=== PATIENT | female | born 2000 | race Caucasian/White ===

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

== ENCOUNTER 2019-07-07 21:14 | Emergency (ER) | payer BC, MEDICAID ==
--- NOTE | 2019-07-07 21:58 | EDM.PDOC ---
ED HPI GENERAL MEDICAL PROBLEM - General Chief Complaint: Abdominal Pain Stated Complaint: 4 WEEKS PREGANT HAS PAIN Time Seen by Provider: 07/07/19 21:55 Source of Information: Reports: Patient History Limitations: Reports: No Limitations - History of Present Illness INITIAL COMMENTS - FREE TEXT/NARRATIVE: 18-year-old 2 para 1 AB 0 who reports at about 8 PM tonight while she was watching a movie with her significant other should be in the have pain in her left pelvic area with pain in her lower back was a crampy type pain. It initially was about a 6/10 and is now a 4/10. She had no bleeding associated with this. She had no symptoms prior to this. She reports that she was seen in clinic on Wednesday of this week and had a test that was positive. Her last menstrual period was on 06/03/2019. She has had some nausea that has been ongoing for several weeks but no vomiting. She has had no fevers or chills. No dysuria or hematuria. No vaginal discharge. No history of trauma. No other associated signs or symptoms. There are no other modifying factors. 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: Other (see below) (Nothing) - Related Data Allergies Allergy/AdvReac Type Severity Reaction Status Date / Time No Known Allergies Allergy Verified 11/24/17 19:33 Home Meds: Home Meds lamoTRIgine [Lamictal] 25 mg PO DAILY 11/16/17 [History] Nitrofurantoin Monohyd/M-Cryst [Macrobid 100 mg Capsule] 100 mg PO BID 7 Days # 14 capsule 07/07/19 [Rx] Past Medical History Genitourinary History: Reports: Other (See Below) Other Genitourinary History: 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, 07/07.) Musculoskeletal History: Reports: Fracture Other Musculoskeletal History: Right wrist fx Psychiatric History: Reports: Bipolar, Depression Dermatologic History: Reports: Eczema Other Dermatologic History: ECZEMA IN CHILDHOOD - Past Surgical History HEENT Surgical History: Reports: Oral Surgery ([place] teeth extraction) GI Surgical History: Reports: Appendectomy Social & Family History - Family History OBGYN: Reports: Other (See Below) Other OBGYN Family History: C SECTIONS - Tobacco Use Smoking Status *Q: Current Every Day Smoker - Caffeine Use Caffeine Use: Reports: Coffee - Living Situation & Occupation Living situation: Reports: with Family Occupation: Student ED ROS GENERAL - Review of Systems Review Of Systems: See Below Constitutional: Reports: No Symptoms HEENT: Reports: No Symptoms Respiratory: Reports: No Symptoms Cardiovascular: Reports: No Symptoms GI/Abdominal: Reports: Abdominal Pain (Left pelvic pain) : Denies: Discharge, Dysuria, Flank Pain Musculoskeletal: Reports: Back Pain Skin: Reports: No Symptoms Neurological: Reports: No Symptoms Hematologic/Lymphatic: Reports: No Symptoms Immunologic: Reports: No Symptoms ED EXAM, GI/ABD - Physical Exam Exam: See Below Exam Limited By: No Limitations General Appearance: Alert, WD/WN, No Apparent Distress Eyes: Bilateral: Normal Appearance, EOMI Ears: Normal External Exam, Hearing Grossly Normal Nose: Normal Inspection, Normal Mucosa, No Blood Throat/Mouth: Normal Inspection, Normal Oropharynx, Normal Voice, No Airway Compromise Head: Atraumatic, Normocephalic Neck: Normal Inspection, Supple, Non-Tender, Full Range of Motion Respiratory/Chest: No Respiratory Distress, Lungs Clear, Normal Breath Sounds, No Accessory Muscle Use, Chest Non-Tender Cardiovascular: Normal Peripheral Pulses, Regular Rate, Rhythm, No Edema GI/Abdominal Exam: Normal Bowel Sounds, Soft, No Mass, Tender (Mildly tender in the left lower quadrant and pelvic area. There is no rebound or guarding.) Back Exam: Normal Inspection. No: CVA Tenderness (R), CVA Tenderness (L) Extremities: Normal Inspection, Normal Range of Motion, Non-Tender, No Pedal Edema, Normal Capillary Refill Neurological: Alert, Oriented, CN II-XII Intact, Normal Cognition, Normal Reflexes, No Motor/Sensory Deficits Psychiatric: Anxious Skin Exam: Warm, Dry, Intact, Normal Color, No Rash Course - Orders/Labs/Meds Orders: Active Orders 24 hr Category Date Time Status CULTURE URINE [RM] Stat Lab 07/07/19 22:20 Received Labs: Laboratory Tests 07/07/19 07/07/19 Range/Units 22:35 22:45 HCG, Quant 123 (<5) mIU/mL Urine Color Yellow (YELLOW) Urine Appearance Slightly cloudy (CLEAR) Urine pH 6.5 (5.0-6.5) Ur Specific [place] 1.000 L (1.010-1.025) Urine Protein Negative (NEGATIVE) mg/dL Urine Glucose (UA) Normal (NORMAL) mg/dL Urine Ketones Negative (NEGATIVE) mg/dL Urine Occult Blood Negative (NEGATIVE) Urine Nitrite Negative (NEGATIVE) Urine Bilirubin Negative (NEGATIVE) Urine Urobilinogen Normal (NEGATIVE) mg/dL Ur Leukocyte Esterase Large H (NEGATIVE) Urine RBC 5-10 H (0-5) Urine WBC 10-20 H (0-5) Ur Squamous Epith Cells Moderate H (NS,R,O) Urine Bacteria Few H (NS) Meds: Medications Discontinued Medications Generic Name Dose Route Start Last Admin Trade Name Freq PRN Reason Stop Dose Admin Nitrofurantoin Macrocrystals 100 mg 07/07/19 23:39 07/07/19 23:52 Macrobid PO 07/07/19 23:40 100 mg ONETIME ONE Administration - Re-Assessments/Exams Free Text/Narrative Re-Assessment/Exam: 07/07/19 23:35: The patient's urinalysis shows some evidence of an infection. I did send the urine for culture. The quantitative hCG was 123. The patient is awake and alert. She has minimal tenderness in her abdomen. She has remained vitally stable. I did call and discuss the patient's case with Dr. Ulrich, AUTOMOBILE BODY WORKER physician at [facility], and she felt that the patient did not need to have an ultrasound performed tonight because she is hemodynamically stable and showing no signs of a ruptured ectopic. She is still at risk for an ectopic the early and the quad being low, the most reasonable course would be to repeat the patient's quantitative hCG within 2-3 days and ultrasound may be done next week if she continues to pain. I discussed this with the patient and she is in agreement with this plan for discharge and follow -up quantitative hCG. I did give the patient ectopic precautions and reasons for to return to the emergency department Departure - Departure Time of Disposition: 23:45 Disposition: Home, Self-Care 01 Condition: Good Clinical Impression: Pelvic pain affecting in first trimester, antepartum UTI in Qualifiers: Trimester: first trimester Qualified Code(s): O23.41 - Unspecified infection of urinary tract in , first trimester - Discharge Information Prescriptions: Nitrofurantoin Monohyd/M-Cryst [Macrobid 100 mg Capsule] 100 mg PO BID 7 Days # 14 capsule Instructions: Nitrofurantoin tablets or capsules, Pelvic Pain, Female, Easy-to- Read Referrals: Blayne Mayer MD [Primary Care Provider] - Forms: ED Department Discharge Additional Instructions: Your urine showed some evidence of an infection. Your quantitative test was 123. As we discussed, this could be pelvic pain associated with your and it could also be associated with a urinary tract infection. It could also be due to an ectopic . You need to follow-up with your OB doctor on Wednesday to have a repeat quantitative test performed. You should rest. You should drink plenty of fluids. Back to the emergency department for increasing pain, vaginal bleeding or any other concerning sign or symptom. Sepsis Event Note - Focused Exam Date Exam was Performed: 07/08/19 Time Exam was Performed: 03:15 - My Orders Last 24 Hours: My Active Orders 07/07/19 22:20 CULTURE URINE [RM] Stat - Assessment/Plan Last 24 Hours: My Active Orders 07/07/19 22:20 CULTURE URINE [RM] Stat
[2019-07-07] MEDS ORDERED: Nitrofurantoin Monohydrate/Macrocrystalline 100 MG Cap PO ONE (23:39)
[2019-07-08 05:17] VITALS: BP 134/71; PULSE 72
== END 2019-07-08 00:01 | disposition home or self-care (01) ==
LOC: FB.ED 21:14
DX: O23.41 Unspecified infection of urinary tract in pregnancy, first trimester (principal); O99.89 Other specified diseases and conditions complicating pregnancy, childbirth and the puerperium; R10.2 Pelvic and perineal pain; O99.331 Smoking (tobacco) complicating pregnancy, first trimester; F17.200 Nicotine dependence, unspecified, uncomplicated; Z79.899 Other long term (current) drug therapy; Z3A.01 Less than 8 weeks gestation of pregnancy
CPT/HCPCS: 36415; 81001; 84702; 87086; 99284; A9270

== ENCOUNTER 2020-12-09 14:54 | Emergency (ER) | payer OTHER ==
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
--- NOTE | 2020-12-09 17:33 | CT ---
INDICATION: Facial injury. CT MAXILLOFACIAL BONES: Spiral 2.5 mm axial sections were obtained through the maxillofacial bones and revealed the paranasal sinuses to be patent - well aerated. The total exam DLP was 656.91 milligray/cm. No evidence of maxillofacial bone fractures was identified. The orbits appear to be intact. Bone density appeared to be normal. IMPRESSION: Normal maxillofacial bones - normal-appearing paranasal sinuses and mastoid air cells as well. Report was called to Dr. Gomez at 1713 hours 12/09/20. [facility]
[2020-12-09 17:44] VITALS: BP 133/83; PULSE 69
== END 2020-12-09 17:35 | disposition home or self-care (01) ==
LOC: FB.ED 14:54
DX: S00.83XA Contusion of other part of head, initial encounter (principal); R04.0 Epistaxis; W20.8XXA Other cause of strike by thrown, projected or falling object, initial encounter
CPT/HCPCS: 70450; 70486; 99000; 99283; 99284-25

== ENCOUNTER 2021-05-25 19:06 | Emergency (ER) | payer SELFPAY ==
[2021-05-25 19:18] VITALS: BP 125/86; PULSE 80
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
== END 2021-05-25 19:45 | disposition home or self-care (01) ==
LOC: FB.ED 19:06
DX: K13.0 Diseases of lips (principal); Z72.0 Tobacco use
CPT/HCPCS: 99283

== ENCOUNTER 2021-08-05 21:15 | Emergency (ER) | payer OTHER ==
[2021-08-05 21:39] VITALS: BP 127/84; PULSE 79
== END 2021-08-05 22:50 | disposition home or self-care (01) ==
LOC: FB.ED 21:15
DX: S41.112A Laceration without foreign body of left upper arm, initial encounter (principal); Z72.0 Tobacco use; W26.8XXA Contact with other sharp object(s), not elsewhere classified, initial encounter
CPT/HCPCS: 12002; 99000; 99282-25; 99283

== ENCOUNTER 2021-11-13 20:57 | Emergency (ER) | payer OTHER ==
[2021-11-13 21:23] VITALS: BP 139/80; PULSE 88
== END 2021-11-13 23:32 | disposition home or self-care (01) ==
LOC: FB.ED 20:57
DX: S52.121A Displaced fracture of head of right radius, initial encounter for closed fracture (principal); W20.8XXA Other cause of strike by thrown, projected or falling object, initial encounter; Y93.68 Activity, volleyball (beach) (court)
CPT/HCPCS: 73110-RT; 99283-25

== ENCOUNTER 2023-05-26 07:02 | Emergency (ER) | payer BC, MEDICAID ==
[2023-05-26] MEDS: Sodium Chloride 0.9% 1,000 ML IV SCH (07:30)
[2023-05-26 07:45] LABS: BASOPHILS PERCENT AUTO 0.4 % (0.2-1.5); EOSINOPHILS ABSOLUTE AUTO 0.1 x10-3/uL (0.0-0.8); EOSINOPHILS PERCENT AUTO 1.2 % (0.6-8.1); HEMATOCRIT 42.9 % (34.2-48.2); HEMOGLOBIN 14.4 g/dL (11.4-15.5); LYMPHOCYTES ABSOLUTE AUTO 2.2 x10-3/uL (1.0-4.4); LYMPHOCYTES PERCENT AUTO 21.7 % (18.4-52.1); MEAN CORPUSCULAR HGB CONC 33.6 g/dL (31.9-34.8); MEAN CORPUSCULAR VOLUME 92.4 fL (76.7-100.5); MEAN PLATELET VOLUME 7.4 fL (7.1-12.4); MONOCYTES ABSOLUTE AUTO 0.6 x10-3/uL (0.3-1.0); MONOCYTES PERCENT AUTO 5.9 % (4.4-15.7); NEUTROPHILS ABSOLUTE AUTO 7.1 x10-3/uL (1.5-6.3); NEUTROPHILS PERCENT AUTO 70.8 % (30.8-76.2); PLATELET COUNT,PLT 375 x10(3)uL (151-488); RED BLOOD CELL COUNT 4.64 x10(6)uL (3.60-5.20); RED CELL DISTRIBUTION WIDTH 12.5 % (12.3-16.5)
[2023-05-26 07:46] LABS: BLOOD UREA NITROGEN,BUN 16 mg/dL (7-18); CALCIUM 9.5 mg/dL (8.6-10.2); CARBON DIOXIDE,CO2 30 mmol/L (21-32); CHLORIDE,CL 103 mmol/L (100-110); CREATININE 0.8 mg/dL (0.55-1.02); ESTIMATED GFR 105 mL/min (>60); GLUCOSE RANDOM 103 mg/dL (80-116); SODIUM,NA 138 mmol/L (135-145)
[2023-05-26 07:49] LABS: BILIRUBIN,URINE NEGATIVE (NEGATIVE); GLUCOSE,URINE NORMAL (NORMAL); KETONES,URINE NEGATIVE (NEGATIVE); LEUKOCYTE ESTERASE,URINE NEGATIVE (NEGATIVE); NITRITE,URINE NEGATIVE (NEGATIVE); OCCULT BLOOD,URINE NEGATIVE (NEGATIVE); PROTEIN,URINE NEGATIVE (NEGATIVE); UROBILINOGEN,URINE NORMAL (NEGATIVE)
[2023-05-26 07:52] LABS: A/G RATIO 1.3; ALANINE AMINOTRANSFERASE,ALT 22 U/L (12-36); ALBUMIN 4.2 g/dL (3.5-5.2); ALKALINE PHOSPHATASE 85 IU/L (56-112); ASPARTATE AMNIOTRANSFERASE,AST 11 IU/L (5-25); BILIRUBIN TOTAL 0.4 mg/dL (0.1-1.3); MAGNESIUM 1.9 mg/dL (1.8-2.5); PROTEIN TOTAL,TP 7.5 g/dL (6.0-8.0)
[2023-05-26 07:56] LABS: COLOR,URINE YELLOW (YELLOW)
[2023-05-26 07:57] LABS: APPEARANCE,URINE CLEAR (CLEAR); BACTERIA,URINE FEW (NS); SQUAMOUS EPITHELIAL CELLS,UR FEW (NS,R,O); WBC,URINE 0-5 (0-5)
[2023-05-26 07:57] LABS: INR 0.98 (1.00-1.24); PROTHROMBIN TIME 10.1 sec (9.0-11.1)
[2023-05-26 08:21] LABS: AMPHETAMINES SCREEN, URINE POSITIVE (NEGATIVE); BARBITURATE SCREEN,URINE NEGATIVE (NEGATIVE); BENZODIAZEPINES SCREEN,URINE NEGATIVE (NEGATIVE); METHADONE SCREEN, URINE NEGATIVE (NEGATIVE); METHAMPHETAMINE SCREEN, URINE NEGATIVE (NEGATIVE); OXYCODONE SCREEN,URINE NEGATIVE (NEGATIVE); THC SCREEN,URINE NEGATIVE (NEGATIVE)
[2023-05-26 08:22] LABS: BUPRENORPHINE SCREEN,URINE NEGATIVE (NEGATIVE)
[2023-05-26 20:05] VITALS: BP 128/84; PULSE 72
== END 2023-05-26 08:20 ==
LOC: FB.ED 07:02
DX: I63.9 Cerebral infarction, unspecified (principal); F17.290 Nicotine dependence, other tobacco product, uncomplicated; Z79.899 Other long term (current) drug therapy; Z90.410 Acquired total absence of pancreas
CPT/HCPCS: 36415; 70450; 80053; 80307; 81001; 81025; 82947; 83735; 84484; 85025; 85610; 85730; 93005; 96360; 99285-25; J7030

== ENCOUNTER 2023-06-20 09:00 | Emergency (ER) | payer BC, MEDICAID ==
[2023-06-20 09:46] VITALS: BP 118/66; PULSE 64
== END 2023-06-20 10:15 | disposition home or self-care (01) ==
LOC: FB.ED 09:00
DX: J02.9 Acute pharyngitis, unspecified (principal); R07.81 Pleurodynia; Z79.899 Other long term (current) drug therapy
CPT/HCPCS: 71045; 87651-QW; 99284

== ENCOUNTER 2023-06-28 13:23 | Emergency (ER) | payer BC, MEDICAID ==
[2023-06-28] MEDS ORDERED: Lidocaine 2% Viscous Solution 15 ML UD PO ONE (13:56)
[2023-06-28] MEDS ORDERED: traMADol 50 MG Tab PO ONE (14:14)
[2023-06-28] MEDS ORDERED: Acetaminophen 500 MG Tab PO ONE (14:14)
[2023-06-28 15:33] VITALS: BP 125/78; PULSE 74
== END 2023-06-28 15:15 | disposition home or self-care (01) ==
LOC: FB.ED 13:23
DX: T23.102A Burn of first degree of left hand, unspecified site, initial encounter (principal); I10 Essential (primary) hypertension; Z86.16 Personal history of COVID-19; Z86.73 Personal history of transient ischemic attack (TIA), and cerebral infarction without residual deficits; Z79.899 Other long term (current) drug therapy; Z91.048 Other nonmedicinal substance allergy status; X08.8XXA Exposure to other specified smoke, fire and flames, initial encounter
CPT/HCPCS: 99283; A9270-GY

== ENCOUNTER 2023-09-15 12:46 | Emergency (ER) | payer BC, MEDICAID ==
[2023-09-15] MEDS ORDERED: Sodium Chloride 0.9% 10 ML Syringe FLUSH PRN (13:24)
[2023-09-15 13:34] LABS: BASOPHILS PERCENT AUTO 0.4 % (0.2-1.5); EOSINOPHILS ABSOLUTE AUTO 0.1 x10-3/uL (0.0-0.8); EOSINOPHILS PERCENT AUTO 0.8 % (0.6-8.1); LYMPHOCYTES ABSOLUTE AUTO 2.1 x10-3/uL (1.0-4.4); LYMPHOCYTES PERCENT AUTO 32.4 % (18.4-52.1); MEAN CORPUSCULAR HEMOGLOBIN 30.1 pg (23.9-33.9); MEAN CORPUSCULAR HGB CONC 33.3 g/dL (31.9-34.8); MEAN CORPUSCULAR VOLUME 90.4 fL (76.7-100.5); MEAN PLATELET VOLUME 7.4 fL (7.1-12.4); MONOCYTES ABSOLUTE AUTO 0.3 x10-3/uL (0.3-1.0); MONOCYTES PERCENT AUTO 4.6 % (4.4-15.7); NEUTROPHILS ABSOLUTE AUTO 3.9 x10-3/uL (1.5-6.3); NEUTROPHILS PERCENT AUTO 61.8 % (30.8-76.2); PLATELET COUNT,PLT 333 x10(3)uL (151-488); RED BLOOD CELL COUNT 4.31 x10(6)uL (3.60-5.20); RED CELL DISTRIBUTION WIDTH 12.6 % (12.3-16.5); WHITE BLOOD CELL COUNT,WBC 6.4 x10-3/uL (3.0-10.3)
[2023-09-15 13:48] LABS: BLOOD UREA NITROGEN,BUN 10 mg/dL (7-18); BUN/CREATININE RATIO 16.7 (9-20); CALCIUM 9.1 mg/dL (8.6-10.2); CARBON DIOXIDE,CO2 25 mmol/L (21-32); CHLORIDE,CL 101 mmol/L (100-110); CREATININE 0.6 mg/dL (0.55-1.02); ESTIMATED GFR 128 mL/min (>60); GLUCOSE RANDOM 87 mg/dL (80-116); POTASSIUM,K 4.3 mmol/L (3.5-5.3); SODIUM,NA 136 mmol/L (135-145)
[2023-09-15] MEDS: Sodium Chloride 0.9% 500 ML IV ONE (13:49)
[2023-09-15 13:54] LABS: A/G RATIO 1.2; ALANINE AMINOTRANSFERASE,ALT 20 U/L (12-36); ALBUMIN 4.2 g/dL (3.5-5.2); ALKALINE PHOSPHATASE 73 IU/L (56-112); ASPARTATE AMNIOTRANSFERASE,AST 20 IU/L (5-25); BILIRUBIN TOTAL 0.5 mg/dL (0.1-1.3); MAGNESIUM 2.2 mg/dL (1.8-2.5); PROTEIN TOTAL,TP 7.7 g/dL (6.0-8.0)
[2023-09-15 14:35] LABS: BILIRUBIN,URINE NEGATIVE (NEGATIVE); GLUCOSE,URINE NORMAL (NORMAL); KETONES,URINE NEGATIVE (NEGATIVE); LEUKOCYTE ESTERASE,URINE NEGATIVE (NEGATIVE); NITRITE,URINE NEGATIVE (NEGATIVE); OCCULT BLOOD,URINE NEGATIVE (NEGATIVE); PROTEIN,URINE NEGATIVE (NEGATIVE); UROBILINOGEN,URINE NORMAL (NEGATIVE)
[2023-09-15 14:44] LABS: APPEARANCE,URINE CLEAR (CLEAR); BACTERIA,URINE FEW (NS); COLOR,URINE YELLOW (YELLOW); RBC,URINE 0-5 (0-5); SQUAMOUS EPITHELIAL CELLS,UR FEW (NS,R,O); WBC,URINE 0-5 (0-5)
[2023-09-15] MEDS: Gadoteridol 279.3 MG/ML 20 ML SDV IV ONE (15:44)
[2023-09-15 17:46] VITALS: BP 111/70; PULSE 75
== END 2023-09-15 18:00 | disposition home or self-care (01) ==
LOC: FB.ED 12:46
DX: R29.810 Facial weakness (principal); R29.818 Other symptoms and signs involving the nervous system; I10 Essential (primary) hypertension; Z91.048 Other nonmedicinal substance allergy status; Z86.16 Personal history of COVID-19; Z79.899 Other long term (current) drug therapy; Z90.710 Acquired absence of both cervix and uterus
CPT/HCPCS: 70450; 70553; 80053; 81001; 81025; 82947; 83735; 85025; 86140; 93005; 99284; A9579; J7040; 93010

== ENCOUNTER 2023-10-25 08:01 | Emergency (ER) | payer BC, MEDICAID ==
[2023-10-25 09:03] VITALS: BP 126/82; PULSE 86
== END 2023-10-25 09:28 | disposition hospice, home (50) ==
LOC: FB.ED 08:01
DX: R20.2 Paresthesia of skin (principal); R20.0 Anesthesia of skin; I10 Essential (primary) hypertension; Z91.048 Other nonmedicinal substance allergy status; Z79.899 Other long term (current) drug therapy; Z86.73 Personal history of transient ischemic attack (TIA), and cerebral infarction without residual deficits; Z86.16 Personal history of COVID-19; Z90.710 Acquired absence of both cervix and uterus; Z87.891 Personal history of nicotine dependence
CPT/HCPCS: 99284

== ENCOUNTER 2024-08-10 10:06 | Emergency (ER) | payer BC ==
[2024-08-10] MEDS ORDERED: Sodium Chloride 0.9% 1,000 ML IV ONE (10:50)
[2024-08-10] MEDS ORDERED: Sodium Chloride 0.9% 10 ML Syringe FLUSH PRN (10:50)
[2024-08-10 11:08] LABS: BASOPHILS PERCENT AUTO 0.4 % (0.2-1.5); EOSINOPHILS ABSOLUTE AUTO 0.1 x10-3/uL (0.0-0.8); EOSINOPHILS PERCENT AUTO 0.8 % (0.6-8.1); HEMATOCRIT 39.6 % (34.2-48.2); HEMOGLOBIN 13.5 g/dL (11.4-15.5); LYMPHOCYTES ABSOLUTE AUTO 1.5 x10-3/uL (1.0-4.4); LYMPHOCYTES PERCENT AUTO 23.8 % (18.4-52.1); MEAN CORPUSCULAR HEMOGLOBIN 31.4 pg (23.9-33.9); MEAN CORPUSCULAR HGB CONC 34.2 g/dL (31.9-34.8); MEAN PLATELET VOLUME 7.2 fL (7.1-12.4); MONOCYTES ABSOLUTE AUTO 0.2 x10-3/uL (0.3-1.0); MONOCYTES PERCENT AUTO 3.9 % (4.4-15.7); NEUTROPHILS ABSOLUTE AUTO 4.4 x10-3/uL (1.5-6.3); NEUTROPHILS PERCENT AUTO 71.1 % (30.8-76.2); PLATELET COUNT,PLT 342 x10(3)uL (151-488); RED CELL DISTRIBUTION WIDTH 13.1 % (12.3-16.5); WHITE BLOOD CELL COUNT,WBC 6.2 x10-3/uL (3.0-10.3)
[2024-08-10 11:11] LABS: BLOOD UREA NITROGEN,BUN 13 mg/dL (7-18); BUN/CREATININE RATIO 18.6 (9-20); CALCIUM 8.5 mg/dL (8.6-10.2); CARBON DIOXIDE,CO2 22 mmol/L (21-32); CHLORIDE,CL 103 mmol/L (100-110); CREATININE 0.7 mg/dL (0.55-1.02); EST CRCL DRUG DOSING (CG) 106.09 mL/min; ESTIMATED GFR 123 mL/min (>60); GLUCOSE RANDOM 95 mg/dL (80-116); POTASSIUM,K 3.5 mmol/L (3.5-5.3); SODIUM,NA 137 mmol/L (135-145)
[2024-08-10 11:15] LABS: D-DIMER QUANTITATIVE < 0.19 mg/LFEU (0.0-0.59)
[2024-08-10 11:16] LABS: A/G RATIO 1.2; ALANINE AMINOTRANSFERASE,ALT 21 U/L (12-36); ALBUMIN 3.9 g/dL (3.5-5.2); ALKALINE PHOSPHATASE 74 IU/L (56-112); ASPARTATE AMNIOTRANSFERASE,AST 16 IU/L (5-25); BILIRUBIN TOTAL 0.4 mg/dL (0.1-1.3); PROTEIN TOTAL,TP 7.3 g/dL (6.0-8.0)
[2024-08-10 11:17] LABS: INR 0.98 (1.00-1.24); PROTHROMBIN TIME 10.2 sec (9.0-11.1)
[2024-08-10] MEDS: Gadoteridol 279.3 MG/ML 20 ML SDV IV ONE (15:58)
[2024-08-10 16:37] VITALS: BP 129/75
[2024-08-10 16:43] VITALS: PULSE 75
== END 2024-08-10 17:08 | disposition home or self-care (01) ==
LOC: FB.ED 10:06
DX: M62.81 Muscle weakness (generalized) (principal); R20.0 Anesthesia of skin; R29.818 Other symptoms and signs involving the nervous system; I10 Essential (primary) hypertension; E03.9 Hypothyroidism, unspecified; F17.290 Nicotine dependence, other tobacco product, uncomplicated; Z86.16 Personal history of COVID-19; Z90.49 Acquired absence of other specified parts of digestive tract; Z90.710 Acquired absence of both cervix and uterus; Z91.048 Other nonmedicinal substance allergy status; Z79.899 Other long term (current) drug therapy
CPT/HCPCS: 36415; 70544; 70553; 80053; 82947; 85025; 85379; 85610; 86140; 99284; 99285; A9579

== ENCOUNTER 2024-10-15 17:29 | Emergency (ER) | payer BC ==
[2024-10-15 17:47] VITALS: BP 124/73; PULSE 85
[2024-10-15] MEDS: Benzonatate 100 MG Cap PO ONE (18:41)
[2024-10-15] MEDS: Amoxicillin/Clavulanate K 875-125 MG Tab PO ONE (18:41)
== END 2024-10-15 18:43 | disposition home or self-care (01) ==
LOC: FB.ED 17:29
DX: J20.9 Acute bronchitis, unspecified (principal); I10 Essential (primary) hypertension; Z86.73 Personal history of transient ischemic attack (TIA), and cerebral infarction without residual deficits; Z91.048 Other nonmedicinal substance allergy status; Z79.899 Other long term (current) drug therapy
CPT/HCPCS: 99283; A9270

== ENCOUNTER 2025-01-07 22:00 | Emergency (ER) | payer BC, OTHER ==
[2025-01-07] MEDS ORDERED: Sodium Chloride 0.9% 10 ML Syringe FLUSH PRN (22:21)
[2025-01-07 22:31] LABS: BASOPHILS ABSOLUTE AUTO 0.0 x10-3/uL (0.0-0.1); BASOPHILS PERCENT AUTO 0.3 % (0.2-1.5); EOSINOPHILS ABSOLUTE AUTO 0.1 x10-3/uL (0.0-0.8); EOSINOPHILS PERCENT AUTO 1.3 % (0.6-8.1); LYMPHOCYTES ABSOLUTE AUTO 2.1 x10-3/uL (1.0-4.4); LYMPHOCYTES PERCENT AUTO 29.9 % (18.4-52.1); MEAN PLATELET VOLUME 7.4 fL (7.1-12.4); MONOCYTES ABSOLUTE AUTO 0.4 x10-3/uL (0.3-1.0); MONOCYTES PERCENT AUTO 5.2 % (4.4-15.7); NEUTROPHILS ABSOLUTE AUTO 4.3 x10-3/uL (1.5-6.3); NEUTROPHILS PERCENT AUTO 63.3 % (30.8-76.2); PLATELET COUNT,PLT 324 x10(3)uL (151-488); RED BLOOD CELL COUNT 3.95 x10(6)uL (3.60-5.20); RED CELL DISTRIBUTION WIDTH 13.4 % (12.3-16.5); WHITE BLOOD CELL COUNT,WBC 6.8 x10-3/uL (3.0-10.3)
[2025-01-07] MEDS: Ketorolac 15 MG/ML SDV IVPUSH ONE (22:34)
[2025-01-07 22:46] LABS: BLOOD UREA NITROGEN,BUN 15 mg/dL (7-18); CARBON DIOXIDE,CO2 25 mmol/L (21-32); CHLORIDE,CL 105 mmol/L (100-110); CREATININE 0.9 mg/dL (0.55-1.02); EST CRCL DRUG DOSING (CG) 78.36 mL/min; ESTIMATED GFR 90 mL/min (>60); GLUCOSE RANDOM 98 mg/dL (80-116); POTASSIUM,K 3.4 mmol/L (3.5-5.3); SODIUM,NA 139 mmol/L (135-145)
[2025-01-07 22:52] LABS: A/G RATIO 1.3; ALANINE AMINOTRANSFERASE,ALT 32 U/L (12-36); ASPARTATE AMNIOTRANSFERASE,AST 21 IU/L (5-25); BILIRUBIN TOTAL 0.3 mg/dL (0.1-1.3); PROTEIN TOTAL,TP 6.7 g/dL (6.0-8.0)
[2025-01-07 22:53] LABS: LACTIC ACID 0.4 mmol/L (0.4-2.0)
[2025-01-07 23:04] LABS: GLUCOSE,URINE NORMAL (NORMAL); OCCULT BLOOD,URINE MODERATE (NEGATIVE)
[2025-01-07 23:05] LABS: APPEARANCE,URINE SLIGHTLY CLOUDY (CLEAR)
[2025-01-07 23:06] LABS: SQUAMOUS EPITHELIAL CELLS,UR FEW (NS,R,O)
[2025-01-08 00:37] VITALS: BP 108/67; PULSE 60
== END 2025-01-08 00:25 | disposition home or self-care (01) ==
LOC: FB.ED 22:00
DX: N30.90 Cystitis, unspecified without hematuria (principal); I10 Essential (primary) hypertension; Z91.048 Other nonmedicinal substance allergy status; Z79.899 Other long term (current) drug therapy; Z90.49 Acquired absence of other specified parts of digestive tract; Z90.710 Acquired absence of both cervix and uterus
CPT/HCPCS: 74176; 80053; 81001; 83605; 83690; 85025; 86140; 87086; 96374; 99284; J1885; J7030; 99283

== ENCOUNTER 2025-03-13 18:12 | Emergency (ER) | payer BC, OTHER ==
[2025-03-13 18:26] VITALS: BP 125/86; PULSE 74
[2025-03-13] MEDS ORDERED: Diphtheria,Pertussis(Acell),Tetanus Vaccine 0.5 ML Syringe IM ONE (18:33)
== END 2025-03-13 18:56 | disposition home or self-care (01) ==
LOC: FB.ED 18:12
DX: S61.012A Laceration without foreign body of left thumb without damage to nail, initial encounter (principal); I10 Essential (primary) hypertension; Z91.048 Other nonmedicinal substance allergy status; Z79.899 Other long term (current) drug therapy; Z86.73 Personal history of transient ischemic attack (TIA), and cerebral infarction without residual deficits; W26.8XXA Contact with other sharp object(s), not elsewhere classified, initial encounter; Y93.89 Activity, other specified; Y99.0 Civilian activity done for income or pay
CPT/HCPCS: 99282

== ENCOUNTER 2025-05-05 19:38 | Emergency (ER) | payer BC, OTHER ==
[2025-05-05] MEDS: Ketorolac 30 MG/ML SDV IM ONE (20:29)
[2025-05-05 20:38] LABS: BASOPHILS ABSOLUTE AUTO 0.0 x10-3/uL (0.0-0.1); BASOPHILS PERCENT AUTO 0.6 % (0.2-1.5); EOSINOPHILS ABSOLUTE AUTO 0.4 x10-3/uL (0.0-0.8); EOSINOPHILS PERCENT AUTO 5.8 % (0.6-8.1); LYMPHOCYTES ABSOLUTE AUTO 2.3 x10-3/uL (1.0-4.4); LYMPHOCYTES PERCENT AUTO 31.7 % (18.4-52.1); MEAN PLATELET VOLUME 7.5 fL (7.1-12.4); MONOCYTES ABSOLUTE AUTO 0.3 x10-3/uL (0.3-1.0); MONOCYTES PERCENT AUTO 4.4 % (4.4-15.7); NEUTROPHILS ABSOLUTE AUTO 4.2 x10-3/uL (1.5-6.3); NEUTROPHILS PERCENT AUTO 57.5 % (30.8-76.2); PLATELET COUNT,PLT 344 x10(3)uL (151-488); RED BLOOD CELL COUNT 4.47 x10(6)uL (3.60-5.20); RED CELL DISTRIBUTION WIDTH 12.4 % (12.3-16.5); WHITE BLOOD CELL COUNT,WBC 7.3 x10-3/uL (3.0-10.3)
[2025-05-05 20:40] LABS: GLUCOSE,URINE NORMAL (NORMAL); OCCULT BLOOD,URINE MODERATE (NEGATIVE)
[2025-05-05 20:40] LABS: BLOOD UREA NITROGEN,BUN 13 mg/dL (7-18); CARBON DIOXIDE,CO2 28 mmol/L (21-32); CHLORIDE,CL 105 mmol/L (100-110); CREATININE 0.8 mg/dL (0.55-1.02); EST CRCL DRUG DOSING (CG) 88.15 mL/min; ESTIMATED GFR 104 mL/min (>60); GLUCOSE RANDOM 96 mg/dL (80-116); POTASSIUM,K 4.0 mmol/L (3.5-5.3); SODIUM,NA 141 mmol/L (135-145)
[2025-05-05 20:41] LABS: APPEARANCE,URINE CLEAR (CLEAR)
[2025-05-05 20:43] LABS: SQUAMOUS EPITHELIAL CELLS,UR FEW (NS,R,O)
[2025-05-05 20:46] LABS: A/G RATIO 1.2; ALANINE AMINOTRANSFERASE,ALT 20 U/L (12-36); ASPARTATE AMNIOTRANSFERASE,AST 14 IU/L (5-25); BILIRUBIN TOTAL 0.4 mg/dL (0.1-1.3); PROTEIN TOTAL,TP 7.4 g/dL (6.0-8.0)
[2025-05-05 21:48] VITALS: BP 122/71; PULSE 72
== END 2025-05-05 21:48 | disposition home or self-care (01) ==
LOC: FB.ED 19:38
DX: N83.202 Unspecified ovarian cyst, left side (principal); I10 Essential (primary) hypertension; E03.9 Hypothyroidism, unspecified; F17.290 Nicotine dependence, other tobacco product, uncomplicated; Z91.048 Other nonmedicinal substance allergy status; Z79.899 Other long term (current) drug therapy; Z86.73 Personal history of transient ischemic attack (TIA), and cerebral infarction without residual deficits
CPT/HCPCS: 36415; 74176; 80053; 81001; 85025; 86140; 96372; 99284; J1885